=== PATIENT | male | born 1990 | race Caucasian/White ===

== ENCOUNTER 2023-09-29 13:17 | Emergency (ER) | payer OTHER | END 2023-09-29 14:57 | disposition home or self-care (01) | LOC: JP.ED 13:17 | DX: S60.032A Contusion of left middle finger without damage to nail, initial encounter (principal); Z88.5 Allergy status to narcotic agent; W23.1XXA Caught, crushed, jammed, or pinched between stationary objects, initial encounter; Y93.89 Activity, other specified | CPT/HCPCS: 73140-26-F2; 73140-F2; 99283 ==